=== PATIENT | male | born 1960 | race Caucasian/White ===

== ENCOUNTER 2019-12-21 08:30 | Observation (INO) ==
--- NOTE | 2019-12-07 09:04 | PAT Medication Instructions ---
Medication Instructions Date of Service December 07, 2019 Home Medications amlodipine 2.5 mg tablet 5 mg PO QAM ascorbic acid (vitamin C) 500 mg capsule 1 cap PO QAM ezetimibe 10 mg tablet 10 mg PO HS levothyroxine 50 mcg tablet 50 mcg PO QAM losartan 100 mg tablet 100 mg PO HS primidone 50 mg tablet 250 mg PO HS simvastatin 20 mg tablet 20 mg PO HS testosterone 1 pkt TD QAM aspirin [Aspir-81] 81 mg PO QAM famotidine 20 mg PO BID gabapentin 600 mg PO HS hydrochlorothiazide 25 mg PO QAM montelukast 10 mg PO HS venlafaxine 150 mg PO HS Continue as directed testosterone 1 pkt TD QAM (OK to use day of surgery, just do not place near surgical site) ASK your surgeon for instructions aspirin [Aspir-81] 81 mg PO QAM DO NOT take the morning of surgery ascorbic acid (vitamin C) 500 mg capsule 1 cap PO QAM hydrochlorothiazide 25 mg PO QAM Take morning of surgery With a small sip of water, OTHERWISE NOTHING TO EAT OR DRINK AFTER MIDNIGHT: amlodipine 2.5 mg tablet 5 mg PO QAM levothyroxine 50 mcg tablet 50 mcg PO QAM famotidine 20 mg PO BID Take evening before surgery ezetimibe 10 mg tablet 10 mg PO HS losartan 100 mg tablet 100 mg PO HS primidone 50 mg tablet 250 mg PO HS simvastatin 20 mg tablet 20 mg PO HS famotidine 20 mg PO BID gabapentin 600 mg PO HS montelukast 10 mg PO HS venlafaxine 150 mg PO HS Other Notes If you have any questions please call us at [phone] or [phone] or [phone] or [phone]
--- NOTE | 2019-12-07 14:31 | Anesthesiology Consultation ---
Date of Service December 07, 2019 Assessment & Plan (1) Encounter for pre-operative examination: COVID Status: As of 12/06 assessment, patient denies travel to endemic area, known exposure/sick contacts, or symptoms of COVID19. Patient instructed that they and their household members must follow strict social distancing guidelines, wear a mask in public and avoid travel for 14 days prior to surgery. Preoperative COVID19 testing to be completed prior to surgery per surgeon's arrtj martinez (pt reports to be done 12/13). Patient made aware to self-isolate as much as possible between COVID testing and surgery. Chart Review Chart Review: Acceptable Risk for Surgery (pending surgeon-ordered pcp clearance 12/13) and Patient seen in Pre Admission Testing Teaching & Discussion Instructed NPO after midnight before surgery, except medications with 15 cc of water. Medication instructions provided according to the PAT guidelines. History Surgery Operation Date: 12/21/19 07:45 Proposed Procedures p C5-C6 Anterior Cervical Discectomy and Fusion, Spinal Cord Monitoring - Navarro Bhandari, Height/Weight Height: 5 ft 10 in Weight: 108.4 kg Allergies Allergy/AdvReac Type Severity Reaction Status Date / Time No Known Allergies Allergy Verified 12/01/19 09:01 Medications Home Medications Medication Instructions Recorded Confirmed Last Taken amlodipine 2.5 mg tablet 5 mg PO M 03/22/19 12/01/19 Unknown ascorbic acid (vitamin C) 500 mg 1 cap PO [facility] 03/22/19 12/01/19 Unknown capsule ezetimibe 10 mg tablet 10 mg PO 03/22/19 12/01/19 Unknown levothyroxine 50 mcg tablet 50 mcg PO [facility] 03/22/19 12/01/19 Unknown losartan 100 mg tablet 100 mg PO 03/22/19 12/01/19 Unknown primidone 50 mg tablet 250 mg PO 03/22/19 12/01/19 Unknown simvastatin 20 mg tablet 20 mg PO 03/22/19 12/01/19 Unknown testosterone 1 pkt TD [facility] 03/22/19 12/01/19 Unknown aspirin [Aspir-81] 81 mg PO QAM 12/01/19 12/01/19 Unknown famotidine 20 mg PO BID 12/01/19 12/01/19 Unknown gabapentin 600 mg PO 12/01/19 12/01/19 Unknown hydrochlorothiazide 25 mg PO QA 12/01/19 12/01/19 Unknown montelukast 10 mg PO HS 12/01/19 12/01/19 Unknown venlafaxine 150 mg PO HS 12/01/19 12/01/19 Unknown Past Medical History Medical History (Updated 12/07/19 @ 14:40 by Saturnino Mark) Arthritis Cancer SKIN CANCER-BASAL CELL Diabetes DIET MANAGED DVT (deep venous thrombosis) OCCURRED SPONTANEOUSLY-LEFT CALF-3-4 YRS AGO, WAS ON LOVENOX TEMPORARILY, NOW ON ASA 81MG -NO ISSUES SINCE GERD (gastroesophageal reflux disease) Hyperlipidemia Hypertension Hypothyroidism Tremor "HEAD SHAKES" FOR 15-20 YEARS, ON PRIMIDONE HS, HAD FULL NEURO WORKUP 20 YRS AGO Exercise / Class Metabolic Activity II 4-5 Yardwork/Stairs/Walk up hill Past Family History Family History Mother Family history of diabetes mellitus Past Surgical History Surgical History History of appendectomy History of colonoscopy Past Anesthesia History No Hx of Anesthesia Complications and No Family Hx of Anesthesia Complications History of PONV No Hx of PONV and No Hx of Motion Sickness STOP BANG Total 5 Social History Smoking Status: Former smoker Do You Dip or Chew Tobacco: Yes (1 CAN PER DAY -- ADVISED NONE AM DOS) Smoking End Date: QUIT 20+ YRS AGO Hx Alcohol Use: No Hx Substance Use: No Review of Systems Pt denies any recent chest pain, shortness of breath, palpitations, cough, f ever, URI, or uncontrolled acid reflux. Physical Exam Vital Signs BP: 145/103 P: 78bpm SPO2: 97% RA T: 98.3 F R: 16 Constitutional Baseline resting head tremor. ENMT Mouth: + dentures (upper) and + edentulous Thyromental Distance: > or= 3.5 Finger Breadths Mallampati Class: I Neck normal visual inspection and + limited neck extension; no facial hair Respiratory normal respiratory effort Auscultation: lungs clear to auscultation bilaterally Cardiovascular Rate/Rhythm: regular rate and regular rhythm Heart Sounds: no murmur Extremities: no edema Testing Laboratory Results 12/07/19 14:50 12/07/19 14:50 PT 10.5 Seconds (9.0-12.0) 12/07/19 14:50 INR 1.0 (0.9-1.1) 12/07/19 14:50 APTT 25.7 Seconds (21.0-31.0) 12/07/19 14:50 Urine Color Yellow 12/07/19 Unknown Urine Appearance Clear (Clear) 12/07/19 Unknown Urine pH 5.0 (4.5-7.5) 12/07/19 Unknown Ur Specific [place] 1.017 (1.000-1.030) 12/07/19 Unknown Urine Protein Negative (Negative) 12/07/19 Unknown Urine Glucose (UA) Negative (Negative) 12/07/19 Unknown Urine Ketones Negative (Negative) 12/07/19 Unknown Urine Nitrite Negative (Negative) 12/07/19 Unknown Ur Leukocyte Esterase Negative (Negative) 12/07/19 Unknown Blood Type A Positive 12/07/19 14:50 Antibody Screen NEGATIVE 12/07/19 14:50 Electrocardiogram Date: 12/07/19 Findings: + NSR @ (68bpm) Chest X-Ray Date: 12/07/19 Findings: + NAD
--- NOTE | 2019-12-07 15:25 | XRay Report ---
XR chest Pre-admission PA/Lat CLINICAL HISTORY: Preoperative chest COMPARISON STUDY: No previous studies for comparison. FINDINGS: The cardiac and mediastinal contours are normal. There is no evidence of focal pulmonary co nsolidation. There is no evidence of failure. No pleural effusions are visualized.[ IMPRESSION: No active disease in the chest. ACT 112: Negative or not required by law. Electronically signed by: Damien Rick M.D. 12/07/2019 3:24 PM
[2019-12-07 15:32] LABS: Basophils # (auto) 0.04 K/uL (0-0.2); Basophils % (auto) 0.5 %; Eosinophils # (auto) 0.46 K/uL (0-0.5); Eosinophils % (auto) 5.9 %; Hematocrit (blood only) 43.2 % (42-52); Hemoglobin 14.9 g/dL (14.0-18.0); Immature Granulocytes # (auto) 0.02 K/uL (0.00-0.02); Immature Granulocytes % (auto) 0.3 %; Lymphocytes % (auto) 33.5 %; Mean Corpuscular Hemoglobin 30.3 pg (25-34); Mean Corpuscular Hgb Conc 34.5 g/dL (32-36); Mean Corpuscular Volume 87.8 fL (80-100); Mean Platelet Volume 9.8 fL (7.4-10.4); Monocytes # (auto) 0.78 K/uL (0.11-0.59); Monocytes % (auto) 10.1 %; Neutrophils # (auto) 3.85 K/uL (1.4-6.5); Neutrophils % (auto) 49.7 %; Platelet Count 199 K/uL (130-400); RDW Coefficient of Variation 13.2 % (11.5-14.5); RDW Standard Deviation 41.9 fL (36.4-46.3); Red Blood Count 4.92 M/uL (4.7-6.1); White Blood Count 7.75 K/uL (4.8-10.8)
[2019-12-07 15:41] LABS: BUN Creatinine Ratio 11.5 (10-20); Calcium 9.1 mg/dl (8.5-10.1); Creatinine Clr Calc Pharmacy 93.1 ml/min; Est GFR (Non-African American) 77.7; Potassium 3.4 mmol/L (3.5-5.1)
[2019-12-07 15:48] LABS: Appearance Urine Clear (Clear); Bilirubin Urine Negative (Negative); Blood Urine Negative (Negative); Color Urine Yellow; Glucose Urine UA Negative (Negative); Ketones Urine Negative (Negative); Leukocyte Esterase Urine Negative (Negative); Nitrite Urine Negative (Negative); Protein Urine Negative (Negative); Specific Gravity Urine 1.017 (1.000-1.030); Urobilinogen Urine Negative (Negative)
[2019-12-07 15:52] LABS: Partial Thromboplastin Ratio 0.9; Partial Thromboplastin Time 25.7 Seconds (21.0-31.0); Prothrombin Time 10.5 Seconds (9.0-12.0)
--- NOTE | 2019-12-07 18:02 | Electrocardiogram Report ---
Test Reason : Blood Pressure : / mmHG Vent. Rate : 068 BPM Atrial Rate : 068 BPM P-R Int : 190 ms QRS Dur : 096 ms QT Int : 400 ms P-R-T Axes : 023 049 000 degrees QTc Int : 426 ms Normal sinus rhythm No previous ECGs available Confirmed by Armond Acevedo ([id number]) on 12/07/2019 6:01:56 PM Referred By: Navarro Bhandrai Confirmed By:Pipe Acevedo
[~2019-12-21 08:30] MED LIST: ACETAMINOPHEN 500 MG TAB PO SCH; CeleBREX 200 MG CAP PO SCH; GABAPENTIN 600 MG DOSE PO SCH; LR 15ML/HR IV SCH; PROPOFOL IV EMULSION 10 MG/ML 100 ML VIAL IV ONE; ceFAZolin 2000MG 2,000 MG/15 ML SYR IV SCH
[2019-12-21] MEDS ORDERED: MIDAZOLAM HCL 1 MG/ML 2ML VIAL ONE (08:38)
[2019-12-21] MEDS ORDERED: fentaNYL citrate 100 MCG/2 ML VIAL ONE (08:38)
--- NOTE | 2019-12-21 09:18 | History & Physical Bridge Note ---
Date of Service December 21, 2019 History & Physical Bridge Note I have examined the patient, reviewed the History & Physical and in the interval since the performance of the History & Physical I have noted the following changes of clinical significance: no changes noted
--- NOTE | 2019-12-21 09:19 | History & Physical Report ---
Date of Service December 21, 2019 Assessment & Plan (1) Cervical stenosis of spinal canal: Admission and Anticipated Discharge Date Admission Date: C5-C6 anterior cervical discectomy and fusion History of Present Illness Chief Complaint: Neck and arm pain Primary Care Provider: Bran Delatorre This is a 33-year-old male who presents with worsening neck and arm symptoms after failing course of nonoperative care is here for surgical intervention. Allergies Allergy/AdvReac Type Severity Reaction Status Date / Time No Known Allergies Allergy Verified 12/21/19 08:47 Home Medications Home Medications Medication Instructions Recorded Confirmed Type amlodipine 2.5 mg tablet 5 mg PO QAM 03/22/19 12/01/19 History ascorbic acid (vitamin C) 500 mg 1 cap PO QAM 03/22/19 12/01/19 History capsule ezetimibe 10 mg tablet 10 mg PO HS 03/22/19 12/01/19 History levothyroxine 50 mcg tablet 50 mcg PO QAM 03/22/19 12/01/19 History losartan 100 mg tablet 100 mg PO HS 03/22/19 12/01/19 History primidone 50 mg tablet 250 mg PO HS 03/22/19 12/01/19 History simvastatin 20 mg tablet 20 mg PO HS 03/22/19 12/01/19 History testosterone 1 pkt TD QA 03/22/19 12/01/19 History aspirin [Aspir-81] 81 mg PO M 12/01/19 12/01/19 History famotidine 20 mg PO BID 12/01/19 12/01/19 History gabapentin 600 mg PO HS 12/01/19 12/01/19 History montelukast 10 mg PO HS 12/01/19 12/01/19 History venlafaxine 150 mg PO HS 12/01/19 12/01/19 History metoprolol succinate 50 mg PO HS 12/15/19 12/15/19 History Past Med/Surg History Medical History (Updated 12/21/19 @ 09:18 by Navarro Bhandari DO) Arthritis Cancer SKIN CANCER-BASAL CELL Diabetes DIET MANAGED DVT (deep venous thrombosis) OCCURRED SPONTANEOUSLY-LEFT CALF-3-4 YRS AGO, WAS ON LOVENOX TEMPORARILY, NOW ON ASA 81MG -NO ISSUES SINCE GERD (gastroesophageal reflux disease) Hyperlipidemia Hypertension Hypothyroidism Tremor "HEAD SHAKES" FOR 15-20 YEARS, ON PRIMIDONE HS, HAD FULL NEURO WORKUP 20 YRS AGO Surgical History History of appendectomy History of colonoscopy Family History Mother Family history of diabetes mellitus Social History Smoking Status: Former smoker Smoking End Date: QUIT 20+ YRS AGO; Second Hand Exposure: No; Do You Dip or Chew Tobacco: Yes (1 CAN PER DAY -- ADVISED NONE AM DOS); Hx Alcohol Use: No Hx Substance Use: No Preferred Language: Pashto Communication Ability: Effective Lab Scientist Required: No Beliefs That Will Affect Care: None Current Living Situation: Spouse and Family Other Information That Helps Us Care for You: No Feels Safe at Home: Yes Safety Concerns: Feels Safe At This Time Assistive Devices: Denture - Upper and Glasses Physical Exam Physical Exam: Patient is alert and oriented Heart regular rate and rhythm Lungs clear to auscultation Results & Data ([facility]) Vital Signs (Past 12 Hours) Vital Signs Temp Pulse Resp BP Pulse Ox 12/21/19 08:51 36.7 C 65 18 160/99 H 97
[2019-12-21] MEDS ORDERED: HYDROmorphone INJ 1 MG/ML SYRINGE IV PRN ×2 (09:38→12:34)
[2019-12-21] MEDS ORDERED: fentaNYL citrate 100 MCG/2 ML VIAL IV PRN (09:38)
[2019-12-21] MEDS ORDERED: ATROPINE SULFATE 0.1 MG/ML 10ML SYR IV PRN (09:38)
[2019-12-21] MEDS ORDERED: ePHEDrine sulfate 50 MG/ML AMP IV PRN (09:38)
[2019-12-21] MEDS ORDERED: ONDANSETRON INJ 2 MG/ML 2 ML VIAL IV PRN ×2 (09:38→12:34)
[2019-12-21] MEDS ORDERED: BACITRACIN INJ 50,000 UNIT VIAL ONE (09:47)
[2019-12-21] MEDS ORDERED: HYDROmorphone INJ 2 MG/ML SYR/VIAL ONE (10:14)
[2019-12-21] MEDS ORDERED: LR 15ML/HR IV SCH (10:15)
[2019-12-21] MEDS ORDERED: PROPOFOL IV EMULSION 10 MG/ML 20 ML VIAL IV ONE (10:20)
[2019-12-21] MEDS ORDERED: SUCCINYLCHOLINE CHLORIDE 20 MG/ML 10 ML VIAL IV ONE (10:20)
[2019-12-21] MEDS ORDERED: PHENYLEPHRINE 100MCG/ML 5ML SYR ONE (10:20)
[2019-12-21] MEDS ORDERED: GLYCOPYRROLATE 0.2 MG/ML VIAL ONE (10:20)
[2019-12-21] MEDS ORDERED: LIDOCAINE HCL 2% 2 ML VIAL/AMP(20MG/ML) INFIL ONE (10:20)
[2019-12-21] MEDS ORDERED: ePHEDrine sulfate 50 MG/ML SYR ONE (10:20)
[2019-12-21] MEDS ORDERED: ONDANSETRON INJ 2 MG/ML 2 ML VIAL ONE (10:20)
[2019-12-21] MEDS ORDERED: ROCURONIUM BROMIDE 10 MG/ML 5 ML VIAL IV ONE (10:20)
[2019-12-21] MEDS ORDERED: DEXAMETHASONE SOD INJ 4 MG/ML VIAL ONE (10:20)
[2019-12-21] MEDS ORDERED: LARYING-O-JET KIT (LTA) ONE (10:20)
[2019-12-21] MEDS ORDERED: NEOSTIGMINE METHYLSULFATE 1 MG/ML 10ML VIAL ONE (10:20)
[2019-12-21] MEDS ORDERED: FLOSEAL HEMOSTATIC MATRIX 10ML TOP ONE (10:29)
--- NOTE | 2019-12-21 10:55 | Operative Report ---
Post Operative Report Pre & Post Diagnosis Operation Date: 12/21/19 09:50 Pre-Op Diagnosis: Spinal Stenosis, Cervical Region Post-Op Diagnosis: Spinal Stenosis, Cervical Region I identified the patient and participated in the time-out.: Yes Procedure Operation Date: 12/21/19 09:50 Actual Procedures #1 intracervical discectomy with bilateral foraminotomies C5-C6. #2 anterior cervical arthrodesis C5-C6. #3 placement of 7 mm Spira cage filled with DBM at C5-C6. #4 application of 5 complete screws across C5-C6. Surgeon Navarro Bhandari, Lye Peel Operator Frida Reeves Estimated Blood Loss 10 Findings See Below The patient is 5 foot 10 inches tall weighing over 109 kg with a BMI in excess of 34. The patient's body habitus did add increased technical difficulty from patient positioning through exposure and the surgical procedure. This at least 25% increase to the operative time. Specimens None Indications This is a 59-year-old male who presents with above-mentioned diagnosis after failing course of nonoperative care is here for surgical intervention. Description of Procedure Patient was met with identified informed consent obtained. Patient was then taken to the operative suite underwent intubation and placed in supine position the Speedy table with the head Albarran head ordered. All bony prominences well-padded eyes inspected to ensure no external pressure placed upon them. This point the anterior cervical spine was prepped and draped in normal sterile fashion. The assistance of fluoroscopy identified the see 5 C6 disc base and a transverse incision was placed along the right anterior aspect of the cervical spine overlying his region. Sharp dissection with the assistance of bipolar electrocautery was performed down to and exposing the anterior cervical spine from C5-C6. A separate retractor was placed. Then performed a complete discectomy of C5-C6 out to the uncovertebral joints bilaterally. [place] distracting pins were then utilized to assist in visualization. Removed all posterior annular fibers longitudinal ligament bilateral foraminotomies performed. The endplates were then burred to subcortical bleeding bone and a 7 mm spiral cage filled with DBM tapped in position. Distracting apparatus was removed and a singleton plate and screws applied with the assistance of fluoroscopy. The incision was then copiously irrigated explored to ensure no damage to surrounding structures remaining bleeding. 10 round LESTER drain inserted. The incision was then closed with 2 Vicryl in the fashion of 4 Monocryl for fascial closure. Steri-Strips dressings placed. Patient waken taken to PACU stable condition. Please note spinal cord monitoring was utilized that the procedure no changes noted. Lastly Frida Reeves was present at the entire surgery involved in patient positioning complex portions of the surgery and final skin closure. I attest to the content of the Intraoperative Record and any orders documented therein. Any exceptions are noted below.
--- NOTE | 2019-12-21 12:00 | Fluoroscopy Report ---
FL cervical 2-3V HISTORY: 59 years-old Male ACDF C5-C6 COMPARISON: None TECHNIQUE: 3 spot fluoroscopic images of the cervical spine were obtained utilizing 15.1 seconds fluo roscopy time FINDINGS: Endotracheal tube is noted. Anterior plate and screw fusion hardware is noted at the C5-C6 level. The visualized hardware appears intact. Alignment appears satisfactory. IMPRESSION: Fluoroscopic assistance as above. Please see operative report for further details. ACT 112: Negative or not required by law. The above report was generated using voice recognition software. It may contain grammatical, syntax o r spelling errors. Electronically signed by: Mat Payne M.D. 12/21/2019 11:59 AM
--- NOTE | 2019-12-21 12:06 | Anesthesiology Progress Note ---
Date of Service December 21, 2019 Anesthesia Post Procedure Vital Signs Vital Signs: Temp Pulse Pulse Resp BP Pulse Ox 12/21/19 11:50 60 16 127/86 97 12/21/19 11:40 60 10 L 129/93 97 12/21/19 11:30 61 15 125/83 95 12/21/19 11:20 60 11 L 116/77 95 12/21/19 11:10 62 10 L 117/89 97 12/21/19 11:03 36.1 C L 76 14 137/78 95 12/21/19 08:51 36.7 C 65 18 160/99 H 97 Pain Intensity Left Arm: Pain Intensity: 3 Transfer of Care Handoff Completed per policy Notes Mental Status: alert / awake / arousable and participated in evaluation Patient Amnestic to Procedure: Yes Nausea / Vomiting: adequately controlled Pain: adequately controlled Airway Patency, RR, SpO2: stable & adequate BP & HR: stable & adequate Hydration State: stable & adequate Anesthetic Complications: no major complications apparent and Pt Satisfied with anesthetic care
[2019-12-21] MEDS ORDERED: oxyCODONE HCL IR 5 MG TAB (IMMEDIATE RELEASE) PO PRN (12:34)
[2019-12-21] MEDS ORDERED: FAMOTIDINE 20 MG TAB PO PRN (12:34)
[2019-12-21] MEDS ORDERED: LORazepam 0.5 MG TAB PO PRN (12:34)
[2019-12-21] MEDS ORDERED: SOD PHOSPHATE/SOD BIPHOSPHATE ENEMA 132 ML BTL PR PRN (12:34)
[2019-12-21] MEDS ORDERED: hydrOXYzine HCl 25 MG TAB PO PRN (12:34)
[2019-12-21] MEDS ORDERED: ACETAMINOPHEN 1,000 MG/100 ML VIAL IV PRN (12:34)
[2019-12-21] MEDS ORDERED: ACETAMINOPHEN 500 MG TAB PO PRN (12:34)
[2019-12-21] MEDS ORDERED: METOCLOPRAMIDE HCL INJ 5 MG/ML 2 ML VIAL IV PRN (12:34)
[2019-12-21] MEDS ORDERED: ONDANSETRON 4 MG OD TAB PO PRN (12:34)
[2019-12-21] MEDS ORDERED: diphenhydrAMINE Capsule 25 MG CAP PO PRN (12:34)
[2019-12-21] MEDS ORDERED: DEXAMETHASONE SOD PHOSPHATE 8 MG in SYRINGE 0 ML IV PRN (12:34)
[2019-12-21] MEDS ORDERED: LORazepam 0.5 MG/1 ML VIAL IV PRN (12:34)
[2019-12-21] MEDS ORDERED: HYDROmorphone INJ 0.5 MG/0.5 ML SYR IV PRN (12:34)
[2019-12-21] MEDS ORDERED: PROMETHAZINE HCL 12.5 MG in SODIUM CHLORIDE 0.9% 50 ML IV PRN (12:34)
[2019-12-21] MEDS ORDERED: DO NOT ADMINISTER PNEUMOCOCCAL VACCINE PRN (12:34)
[2019-12-21] MEDS ORDERED: NALOXONE HCL 0.4 MG/1 ML VIAL/CARP IV PRN (12:34)
[2019-12-21] MEDS ORDERED: ALUMINUM/MAGNESIUM SUSP 30 ML UDC PO PRN (12:34)
[2019-12-21] MEDS ORDERED: MAGNESIUM HYDROXIDE SUSP 30 ML UDC PO PRN (12:34)
[2019-12-21] MEDS ORDERED: traMADol HCL 50 MG TABLET PO PRN (12:34)
[2019-12-21] MEDS ORDERED: DO NOT ADMINISTER FLU VACCINE PRN (12:34)
[2019-12-21] MEDS ORDERED: RACEPINEPHRINE 2.25% NEBU SOLN 0.5 ML VIAL INH PRN (12:34)
[2019-12-21] MEDS: SODIUM CHLORIDE 0.9% 1000ML 1,000 ML IV SCH ×2 (14:47→23:29)
[2019-12-21] MEDS: [UNRECOGNIZED DRUG - OTHER] SCH ×2 (16:08→23:30)
--- NOTE | 2019-12-21 17:31 | Hospitalist Consultation ---
Date of Consultation December 21, 2019 Assessment & Plan (1) Cervical stenosis of spinal canal: Status post C5-6 anterior cervical discectomy and fusion Joss Bhandari 12/19/2019 Preoperative neuropathy medicine of gabapentin is continued (2) Type 2 diabetes mellitus: To be these is listed in his chart he is morbidly obese with a BMI of 34.65 medications are currently ordered employ sliding scale as needed because he received some intraoperative dexamethasone 8 mg (3) Hypertension: For hypertension the patient typically takes amlodipine 5 mg metoprolol succinate 50 at bedtime losartan 100 at bedtime (4) Hyperlipidemia: For his dyslipidemia number statin 20 ezetimibe 10 (5) Depression: Patient remains on venlafaxine 100 (6) Hypothyroidism: Synthroid 50 mcg a day there is no TSH on record here History of Present Illness Attending Physician: Navarro Bhandari, DO History of Present Illness Patient underwent a C5-C6 anterior cervical discectomy and fusion on 12/21/2019. He is a history of pretension diabetes hypogonadism and dyslipidemia Allergies Allergy/AdvReac Type Severity Reaction Status Date / Time No Known Allergies Allergy Verified 12/21/19 08:47 Home Medications Home Medications Medication Instructions Recorded Confirmed Type amlodipine 2.5 mg tablet 5 mg PO QAM 03/22/19 12/01/19 History ascorbic acid (vitamin C) 500 mg 1 cap PO QAM 03/22/19 12/01/19 History capsule ezetimibe 10 mg tablet 10 mg PO HS 03/22/19 12/01/19 History levothyroxine 50 mcg tablet 50 mcg PO QAM 03/22/19 12/01/19 History losartan 100 mg tablet 100 mg PO HS 03/22/19 12/21/19 History primidone 50 mg tablet 250 mg PO HS 03/22/19 12/01/19 History simvastatin 20 mg tablet 20 mg PO HS 03/22/19 12/01/19 History testosterone 1 pkt TD QAM 03/22/19 12/21/19 History aspirin [Aspir-81] 81 mg PO QAM 12/01/19 12/21/19 History famotidine 20 mg PO BID 12/01/19 12/01/19 History gabapentin 600 mg PO HS 12/01/19 12/01/19 History montelukast 10 mg PO HS 12/01/19 12/01/19 History venlafaxine 150 mg PO HS 12/01/19 12/01/19 History metoprolol succinate 50 mg PO HS 12/15/19 12/15/19 History oxycodone 5 mg PO Q6H PRN #20 tab 12/21/19 Rx tramadol 50 mg PO Q6H PRN #20 tab 12/21/19 Rx Patient History Medical History (Updated 12/21/19 @ 17:29 by Cedric Florence MD) Arthritis Cancer SKIN CANCER-BASAL CELL Diabetes DIET MANAGED DVT (deep venous thrombosis) OCCURRED SPONTANEOUSLY-LEFT CALF-3-4 YRS AGO, WAS ON LOVENOX TEMPORARILY, NOW ON ASA 81MG -NO ISSUES SINCE GERD (gastroesophageal reflux disease) Hyperlipidemia Hypertension Hypothyroidism Tremor "HEAD SHAKES" FOR 15-20 YEARS, ON PRIMIDONE HS, HAD FULL NEURO WORKUP 20 YRS AGO Surgical History History of appendectomy History of colonoscopy Family History Mother Family history of diabetes mellitus Social History Smoking Status: Former smoker Smoking End Date: QUIT 20+ YRS AGO; Second Hand Exposure: No; Do You Dip or Chew Tobacco: Yes (1 CAN PER DAY -- ADVISED NONE AM DOS); Hx Alcohol Use: No Hx Substance Use: No Preferred Language: Croatian Communication Ability: Effective Calculus Teacher Required: No Beliefs That Will Affect Care: None Current Living Situation: Spouse and Family Other Information That Helps Us Care for You: No Feels Safe at Home: Yes Safety Concerns: Feels Safe At This Time Assistive Devices: Denture - Upper and Glasses Review of Systems Review of Systems: Mild distress and fatigue no headache, blurry or double vision no speech or swallowing issues no chest pain, pressure or palpitations no shortness of breath, cough or wheezes no abdominal pain, nausea or vomiting, diarrhea or constipation no dysuria, hematuria or frequency no focal joint pain or swelling no back pain, CVA tenderness or radicular pain no bruising, bleeding or rashes no focal signs of weakness or numbness or altered sensation no complaints of anxiety or depression. Physical Exam Physical Exam: The patient appeared well nourished and normally developed. Vital signs as documented. Head exam is normocephalic atraumatic no scleral icterus Neck is with rigid c collar in place Lungs are clear to auscultation, no focal loss of breath sounds Cardiac exam, Rhythm is regular.. No murmurs, rubs or gallops. Abdominal exam reveals normal bowel sounds, soft non tender, no masses Extremities are nonedematous and both pedal pulses are present Neurologic exam is alert and oriented, no focal loss of strength or sensation Skin is without bruises or rashes Psychologically is without concerns for anxiety or depression. Results & Data Results & Data ([facility]) Vital Signs (Past 12 Hours) Vital Signs Temp Pulse Pulse Pulse Resp BP Pulse Ox 12/21/19 15:32 86 16 96 12/21/19 15:10 98.1 F 61 12 117/70 96 12/21/19 14:43 98.1 F 64 14 123/79 98 12/21/19 13:33 98.2 F 60 16 110/74 98 12/21/19 13:05 65 16 97 12/21/19 12:47 97.7 F 57 L 14 129/83 98 12/21/19 12:20 12/21/19 12:10 97.3 F L 53 L 12 122/86 96 12/21/19 12:00 56 L 14 117/79 97 12/21/19 11:50 60 16 127/86 97 12/21/19 11:40 60 10 L 129/93 97 12/21/19 11:30 61 15 125/83 95 12/21/19 11:20 60 11 L 116/77 95 12/21/19 11:10 62 10 L 117/89 97 12/21/19 11:03 97.0 F L 76 14 137/78 95 12/21/19 08:51 98.1 F 65 18 160/99 H 97 Pulse Ox 12/21/19 15:32 12/21/19 15:10 12/21/19 14:43 12/21/19 13:33 12/21/19 13:05 12/21/19 12:47 12/21/19 12:20 97 12/21/19 12:10 12/21/19 12:00 12/21/19 11:50 12/21/19 11:40 12/21/19 11:30 12/21/19 11:20 12/21/19 11:10 12/21/19 11:03 12/21/19 08:51 PG Care Time/CCT Total # of Minutes Spent Total Time Spent with Patient: Total time spent is greater than 50% in coordination of care (as documented) at patient's floor/unit and/or counseling patient: Coding Level of Care Code 41570 Inpt Consult Level 3 Diagnoses Cervical stenosis of spinal canal M48.02 Type 2 diabetes mellitus E11.9 Hypertension I10 Hyperlipidemia E78.5 Depression F32.9 Hypothyroidism E03.9
[2019-12-21] MEDS: ceFAZolin 2000MG 2,000 MG/15 ML SYR IV SCH (19:33)
[2019-12-21] MEDS ORDERED: MONTELUKAST SODIUM 10 MG TABLET PO SCH (21:00)
[2019-12-21] MEDS ORDERED: METOPROLOL SUCC 50MG EXT REL TAB PO SCH (21:00)
[2019-12-21] MEDS ORDERED: GABAPENTIN 600 MG TAB PO SCH (21:00)
[2019-12-21] MEDS ORDERED: SIMVASTATIN 20 MG TAB PO SCH (21:00)
[2019-12-21] MEDS ORDERED: DOCUSATE SODIUM/SENNA 50/8.6MG TAB PO SCH (21:00)
[2019-12-21] MEDS ORDERED: EZETIMIBE 10 MG TABLET PO SCH (21:00)
[2019-12-21] MEDS ORDERED: VENLAFAXINE HCL XR 150 MG CAPXR PO SCH (21:00)
[2019-12-21] MEDS ORDERED: PRIMIDONE 250 MG TAB PO SCH (21:00)
[2019-12-21] MEDS ORDERED: LOSARTAN POTASSIUM 50 MG TAB PO SCH (21:00)
[2019-12-21] MEDS: FAMOTIDINE 20 MG TAB PO SCH (21:31)
[2019-12-22] MEDS: ceFAZolin 2000MG 2,000 MG/15 ML SYR IV SCH (01:24)
[2019-12-22] MEDS ORDERED: LEVOTHYROXINE SODIUM 50 MCG TABLET PO SCH (06:30)
[2019-12-22] MEDS: [UNRECOGNIZED DRUG - OTHER] SCH (07:49)
[2019-12-22] MEDS: FAMOTIDINE 20 MG TAB PO SCH (07:50)
[2019-12-22] MEDS ORDERED: ASCORBIC ACID 500 MG TAB PO SCH (09:00)
[2019-12-22] MEDS ORDERED: ASPIRIN 81 MG ECTAB PO SCH (09:00)
[2019-12-22] MEDS ORDERED: amLODIPine BESYLATE 5 MG TAB PO SCH (09:00)
[2019-12-22 09:14] LABS: Basophils # (auto) 0.02 K/uL (0-0.2); Basophils % (auto) 0.1 %; Eosinophils # (auto) 0.04 K/uL (0-0.5); Eosinophils % (auto) 0.3 %; Hematocrit (blood only) 39.5 % (42-52); Hemoglobin 13.4 g/dL (14.0-18.0); Immature Granulocytes # (auto) 0.03 K/uL (0.00-0.02); Immature Granulocytes % (auto) 0.2 %; Lymphocytes # (auto) 2.61 K/uL (1.2-3.4); Lymphocytes % (auto) 19.1 %; Mean Corpuscular Hemoglobin 30.4 pg (25-34); Mean Corpuscular Hgb Conc 33.9 g/dL (32-36); Mean Corpuscular Volume 89.6 fL (80-100); Mean Platelet Volume 9.7 fL (7.4-10.4); Monocytes # (auto) 1.33 K/uL (0.11-0.59); Monocytes % (auto) 9.8 %; Neutrophils # (auto) 9.61 K/uL (1.4-6.5); Neutrophils % (auto) 70.5 %; Platelet Count 214 K/uL (130-400); RDW Coefficient of Variation 13.4 % (11.5-14.5); RDW Standard Deviation 43.9 fL (36.4-46.3); Red Blood Count 4.41 M/uL (4.7-6.1); White Blood Count 13.64 K/uL (4.8-10.8)
[2019-12-22 09:43] LABS: BUN Creatinine Ratio 10.6 (10-20); Calcium 8.2 mg/dl (8.5-10.1); Creatinine Clr Calc Pharmacy 93.5 ml/min; Est GFR (Non-African American) 77.7; Potassium 3.8 mmol/L (3.5-5.1)
[2019-12-22 10:40] LABS: Estimated Average Glucose 131 mg/dl; Hemoglobin A1C 6.2 % (4.5-5.6)
--- NOTE | 2019-12-22 12:15 | Discharge Summary ---
Date of Service December 22, 2019 Admission HPI Per Admitting Provider This is a 33-year-old male who presents with worsening neck and arm symptoms after failing course of nonoperative care is here for surgical intervention. Principal Diagnosis Cervical spinal stenosis with radiculopathy Discharge Data Allergies Allergy/AdvReac Type Severity Reaction Status Date / Time No Known Allergies Allergy Verified 12/21/19 08:47 Consultations 12/21/19 12:34 Consult Hospitalist Routine Procedures Performed Operation Date: 12/21/19 09:50 Actual Procedures p C5-C6 Anterior Cervical Discectomy and Fusion, Spinal Cord Monitoring(Not Applicable) - Navarro Bhandari DO Ordered Studies 12/21/19 09:50 FL cervical 2-3V Routine FL fluoroscopy <1hr Routine Hospital Course (1) Hypothyroidism: Patient went anterior cervical discectomy and fusion C5-C6 tolerated so was taken to orthopedic for postoperative. Postop day 1 he swallowing well no hoarseness. Arm symptoms markedly improved. Strength intact. LESTER drain decreasing it appropriately. Subsequently discharged home. Discharge orders instructions from the chart for further review. Total Time Total Time Spent Total Time Spent (In Minutes): 20 minutes Discharge Plan Discharge Items Patient Disposition: Home - Self-Care Reason For Visit: Spinal Stenosis, Cervical Region Discharge Diagnosis: Cervical spinal stenosis with radiculopathy Activity: As commented below Non-emergency contact: Primary Care Provider Call non-emergency contact if: you have any medication questions Follow-up/Referrals: Bran Delatorre [Primary Care Provider] - Diet: Regular Addtl Attending Provider Instructions: ACTIVITY RECOMMENDATIONS: SELF CARE INSTRUCTIONS AFTER CERVICAL FUSIONS 1. No smoking. Smoking drastically decreases the chance of a solid fusion. 2. No bending, lifting more than 5 pounds, or twisting (roll like a log when turning in bed). 3. You may shower 3 days after surgery. Thoroughly dry wound. Do not soak in the tub. 4. Cervical collar: Must be worn at all times including sleeping. You may remove the brace only to bath, eat and if you are sitting in a recliner. 5. Please walk as much as you can for exercise. Gradually increase the distance that you walk as your endurance increases. SPECIAL CARE INSTRUCTIONS: VERY IMPORTANT TO READ AND REVIEW A. Do not take any anti-inflammatory medications (i.e. Indocin, Advil, Aspirin, Naprosyn, Aleve, Motrin, etc.) as these may inhibit the chance of a solid fusion. Tylenol is okay to take. B. Your surgical incision has been closed with a cosmetic suture under the skin that will dissolve in about 6 weeks. In 14 days, you can use a pair of clean scissors and cut the suture that is left outside of the skin at the ends of your incision. C. Complications are uncommon, but please contact us if you have any signs or symptoms of: 1. wound infection (fever higher than 102.5 degrees F, redness, separation of wound, drainage, or increasing pain from the incision) 2. blood clots in legs (pain, swelling, redness and warmth in legs) 3. urinary tract infection (fever higher than 102.5 degrees, burning upon urination or increased frequency of urination) 4. nerve problems (inability to walk on your toes or heels, numbness, loss of bowel or bladder control) 5. any other symptoms that concern you. D. Please call the office at if you have any concerns or questions about your operation or recovery. MANAGING PAIN AFTER SPINAL SURGERY 1. Narcotic medication is intended for short-term use and will be provided for surgical pain. Surgical pain usually lasts for a period of 4-6 weeks. Narcotic medication includes Percocet, Vicodin, Darvocet, Tylenol #3 or Lortab. 2. Longer-term pain is more appropriately treated with non-narcotic medication such as Tylenol ES. 3. Muscle spasm is not appropriately treated with narcotics. Muscle relaxers such as Soma, Flexeril or Skelaxin can be used along with Tylenol ES. 4. Remember that we all live with some "aches and pains". This is not unusual or uncommon after an injury or as we get older. 5. We will provide appropriate medication within the normal guidelines of their prescribed use. We will also be very cautious and aware of potential abuse and extended duration of patients' medication needs. 6. Please allow 2-3 days to process refills. Prescriptions will not be mailed but must be picked up at the office. FOLLOW UP VISIT: Keep your scheduled follow-up appointment. Any questions, please call the office at . Pending Studies at Discharge: No Stand-Alone Forms: [facility], Smoking Cessation Medications and DC Order Prescriptions: New tramadol 50 mg tablet 50 mg PO Q6H PRN (Reason: pain, moderate) Qty: 20 RF: 0 oxycodone 5 mg tablet 5 mg PO Q6H PRN (Reason: pain, severe) Qty: 20 RF: 0 Continued ascorbic acid (vitamin C) 500 mg capsule 1 cap PO QAM RF: 0 ezetimibe 10 mg tablet 10 mg PO HS RF: 0 losartan 100 mg tablet 100 mg PO HS RF: 0 simvastatin 20 mg tablet 20 mg PO HS RF: 0 levothyroxine 50 mcg tablet 50 mcg PO QAM RF: 0 amlodipine 2.5 mg tablet 5 mg PO QAM RF: 0 primidone 50 mg tablet 250 mg PO HS RF: 0 testosterone 1 % (25 mg/2.5gram) gel in packet 1 pkt TD QAM RF: 0 famotidine 40 mg Tablet 20 mg PO BID RF: 0 venlafaxine 150 mg Capsule,Extended Release 24hr 150 mg PO HS RF: 0 aspirin 81 mg Tablet,Delayed Release (Dr/Ec) 81 mg PO QAM RF: 0 montelukast 10 mg Tablet 10 mg PO HS RF: 0 gabapentin 300 mg Capsule 600 mg PO HS RF: 0 metoprolol succinate 100 mg Tablet Extended Release 24 Hr 50 mg PO HS RF: 0 Discharge Orders: Discharge Order (Routine); Ordered 12/22/19 Ordered By: Navarro Bhandari Admission Data Admit Date/Time: 12/21/19 11:02 Attending Provider: Navarro Bhandari Admit Provider: Navarro Bhandari Primary Care Provider: Bran Delatorre Other Interventions: Discharge Summary Assessment (RN) Last Done: 12/22/19 12:11
--- NOTE | 2019-12-22 12:49 | Hospitalist Progress Note ---
Date of Service December 22, 2019 Assessment & Plan (1) Cervical stenosis of spinal canal: * POD# 1 s/p C5-6 anterior cervical discectomy and fusion Joss Bhandari 12/19/2019 * Preoperative neuropathy medicine of gabapentin is continued * PT/OT/pain management per primary service * h/h stable, acceptable blood loss from procedure (2) Type 2 diabetes mellitus: * To be these is listed in his chart he is morbidly obese with a BMI of 34.65 medications are currently ordered employ sliding scale as needed because he received some intraoperative dexamethasone 8 mg * Known pre-DM. Repeat A1c 6.2. To follow up with his PCP. BSGs controlled (3) Hypertension: * For hypertension the patient typically takes amlodipine 5 mg metoprolol succinate 50 at bedtime losartan 100 at bedtime * BP 98/62 but patient asymptomatic -- instructed to hold his losartan dose for this evening unless BPs elevated on home cuff (4) Hyperlipidemia: * For his dyslipidemia number statin 20 ezetimibe 10mg (5) Depression: * Patient remains on venlafaxine 100 (6) Hypothyroidism: * Synthroid 50 mcg a day there is no TSH on record here Discharge order already in place per primary service Admission and Anticipated Discharge Date Admission Date: December 21, 2019 Supervising Physician Co-Signing Physician Notes PA Supervision Note: I did not personally see or examine the patient today, but I verified all roberts points of AMPARO Rivera's assessment and plan with the following exceptions/additions: None Subjective Patient ready for discharge. Pain controlled. BP low but patient asymptomatic. Instructed to hold his losartan tonight unless BP check at home shows elevated pressure. Otherwise, resume tomorrow. Patient with known history "pre-DM". Discussed A1c 6.2 and to follow up with PCP. Collar in place and tolerating diet without difficulty. Review of Systems Review of Systems: All systems reviewed & are unremarkable except as noted in HPI & below Physical Exam Constitutional: WD/WN, vitals as above no acute distress Neck: collar in place no stridor Respiratory: normal respiratory effort, lungs clear to auscultation Cardiovascular: RRR, no murmur, no edema Gastrointestinal (Abdomen): normal bowel sounds, soft, nontender, no hepatosplenomegaly Neurologic: moves all extremities and awake Psychiatric: A+Ox3, euthymic affect Lymphatic: no cervical or axillary lymphadenopathy Results & Data Results & Data ([facility]) Vital Signs (Past 12 Hours) Vital Signs Temp Pulse Resp BP Pulse Ox 12/22/19 12:43 36.8 C 64 16 98/62 L 96 12/22/19 12:11 36.8 C 64 16 98/62 L 96 12/22/19 11:59 64 16 98/62 L 96 12/22/19 11:16 59 L 18 96 12/22/19 10:02 54 L 16 130/76 96 12/22/19 07:20 36.8 C 51 L 18 130/79 97 12/22/19 07:09 53 L 18 96 12/22/19 06:12 97 12/22/19 05:19 36.7 C 58 L 16 121/79 97 12/22/19 03:20 36.8 C 56 L 12 118/71 96 12/22/19 03:16 52 L 16 95 12/22/19 01:20 36.8 C 63 14 116/72 95 Laboratory Results 12/22/19 12/22/19 12/22/19 Range/Units 08:59 08:59 08:59 WBC 13.64 H (4.8-10.8) K/uL RBC 4.41 L (4.7-6.1) M/uL Hgb 13.4 L (14.0-18.0) g/dL Hct 39.5 L (42-52) % MCV 89.6 (80-100) fL MCH 30.4 (25-34) pg MCHC 33.9 (32-36) g/dL RDW Std Deviation 43.9 (36.4-46.3) fL RDW Coeff of Edd 13.4 (11.5-14.5) % Plt Count 214 (130-400) K/uL MPV 9.7 (7.4-10.4) fL Immature Gran % (Auto) 0.2 % Neut % (Auto) 70.5 % Lymph % (Auto) 19.1 % [place] % (Auto) 9.8 % Eos % (Auto) 0.3 % Baso % (Auto) 0.1 % Neut # (Auto) 9.61 H (1.4-6.5) K/uL Lymph # (Auto) 2.61 (1.2-3.4) K/uL [place] # (Auto) 1.33 H (0.11-0.59) K/uL Eos # (Auto) 0.04 (0-0.5) K/uL Baso # (Auto) 0.02 (0-0.2) K/uL Immature Gran # (Auto) 0.03 H (0.00-0.02) K/uL Sodium 140 (136-145) mmol/L Potassium 3.8 (3.5-5.1) mmol/L Chloride 109 H (98-107) mmol/L Carbon Dioxide 27 (21-32) mmol/L Anion Gap 4.0 (3-11) BUN 11 (7-18) mg/dl Creatinine 1.04 (0.6-1.4) mg/dl Est Cr Clr Drug Dosing 93.5 ml/min Est GFR ( Amer) 90.0 Est GFR (Non-Af Amer) 77.7 BUN/Creatinine Ratio 10.6 (10-20) Glucose 150 H (70-99) mg/dl Estimat Average Glucose 131 mg/dl Hemoglobin A1c 6.2 H (4.5-5.6) % Calcium 8.2 L (8.5-10.1) mg/dl PG Care Time/CCT Total # of Minutes Spent Total Time Spent with Patient: Total time spent is greater than 50% in coordination of care (as documented) at patient's floor/unit and/or counseling patient: Coding Level of Care Code 11061 Subseq Hosp Care Lvl 1 Diagnoses Cervical stenosis of spinal canal M48.02 Type 2 diabetes mellitus E11.9 Hypertension I10 Hyperlipidemia E78.5 Depression F32.9 Hypothyroidism E03.9
[2019-12-22] MEDS ORDERED: POLYETHYLENE (MIRALAX) 17 GM PACK PO SCH (14:00)
[2019-12-23] MEDS ORDERED: bisacodyL 10 MG SUPP PR PRN (10:56)
== END 2019-12-22 13:28 | disposition home or self-care (01) ==
LOC: 3E 08:30 → ASU 08:30